=== PATIENT | male | born 1965 | race Two or more races ===

== ENCOUNTER 2024-07-16 06:47 | Emergency (ER) | payer BC ==
[~2024-07-16] VITALS: Ht 180.3 cm; Wt 90.7 kg
[2024-07-16] MEDS ORDERED: THIAMINE HCL 100 MG/ML 2 ML VIAL IV STA (07:58)
[2024-07-16] MEDS ORDERED: FLUMAZENIL 0.5 MG/5 ML ML IV STA (07:59)
[2024-07-16] MEDS ORDERED: RINGERS SOLUTION,LACTATED 1,000 ML IV STA (07:59)
[2024-07-16] MEDS ORDERED: NALOXONE HCL 0.4 MG/ML AMPUL IV STA (07:59)
[2024-07-16] MEDS ORDERED: THIAMINE HCL 100 MG/ML 2 ML VIAL ONE (08:11)
[2024-07-16] MEDS ORDERED: NALOXONE HCL 0.4 MG/ML AMPUL ONE (08:12)
[2024-07-16] MEDS ORDERED: FLUMAZENIL 0.5 MG/5 ML ML IV ONE (08:12)
[2024-07-16 09:15] LABS: HEMATOCRIT 41.1 % (39.0-48.0); INR 1.15; MEAN CELL VOLUME 107.4 fL (80.0-100.00); MEAN CORPUSCULAR HEMOGLOBIN 36.6 pg (27.00-32.0); MEAN CORPUSCULAR HGB CONC 34.1 g/dl (32.0-36.0); PARTIAL THROMBOPLASTIN TIME 29.3 SECONDS (22.0-34.0); PLATELET COUNT 351 K/uL (150-450); PROTHROMBIN TIME 12.4 SECONDS (9.0-11.5); RED BLOOD COUNT 3.82 M/uL (4.00-6.00); RED CELL DISTRIBUTION WIDTH 14.4 % (11.5-14.5)
[2024-07-16 09:18] LABS: ALBUMIN 3.5 gm/dL (3.4-5.0); BILIRUBIN TOTAL 0.6 mg/dL (0.3-1.2); CREATININE SERUM 1.26 mg/dL (0.70-1.30); GFR 59.2; GLOBULINA 4.4 G/DL (2.4-3.5); POTASSIUM 3.35 mEq/L (3.5-5.1); TOTAL PROTEIN 7.9 gm/dL (6.4-8.2)
[2024-07-16] MEDS ORDERED: LORazepam 2 MG/ML VIAL ONE (09:36)
[2024-07-16] MEDS ORDERED: LORazepam 2 MG/ML VIAL IM ONE (09:45)
[2024-07-16 10:12] LABS: ABG PH 7.499 (7.35-7.45); ABG pCO2 24.3 mmHg (35-45)
[2024-07-16 10:13] LABS: ABG PO2 106.4 mmHg (80-100); BASE EXCESS -2.7 mmol/l; BICARBONATE 18.5 mmol/l (23-25); SaO2 98.6 %; Tco2 19.3 mmol/l; allen test SATISFACTORY; o2 21 %; puncture site RADIAL LEFT
[2024-07-16] MEDS ORDERED: NIFEDIPINE 10 MG CAPSULE PO ONE (10:41)
[2024-07-16] MEDS ORDERED: NIFEDIPINE 20 MG CAPSULE PO ONE (10:45)
[2024-07-16] MEDS ORDERED: LevETIRAcetam 500 MG/5 ML VIAL IV ONE (10:45)
[2024-07-16 11:50] LABS: URINE APPEARANCE Clear; URINE BILIRRUBIN Negative (NEGATIVE); URINE BLOOD Small; URINE COLOR Yellow; URINE GLUCOSE Negative (NEGATIVE); URINE KETONE Negative (NEGATIVE); URINE LEUKOCYTE Negative; URINE NITRATE Negative; URINE UROBILINOGEN 0.2 E.U./dl
[2024-07-16 11:56] LABS: URINE BACTERIA 11.3 uL (0.0-1933); URINE WBC 1.8 uL (0.0-23.2)
[2024-07-16 11:57] LABS: URINE EPITHELIAL CELLS 0.6 uL (0.0-38.8); URINE PROTEIN 100 (NEGATIVE); URINE RBC 1.9 uL (0.0-20.8)
[2024-07-16 12:41] LABS: COCAINE NEGATIVE (NEGATIVE); METHADONE NEGATIVE (NEGATIVE); OPIATES NEGATIVE (NEGATIVE); THC ( Cannabinoids) NEGATIVE (NEGATIVE)
== END 2024-07-16 15:13 | disposition home or self-care (01) ==
LOC: ER 06:47
DX: R41.82 Altered mental status, unspecified (principal); R11.10 Vomiting, unspecified; Z20.822 Contact with and (suspected) exposure to COVID-19; I10 Essential (primary) hypertension